=== PATIENT | female | born 1950 | race Caucasian/White ===

== ENCOUNTER 2023-05-13 11:28 | Emergency (ER) | payer MEDICARE, OTHER ==
[~2023-05-13] VITALS: Ht 154.9 cm; Wt 69.9 kg
[2023-05-13 11:56] VITALS: O2SAT 98
[2023-05-13 12:26] LABS: BASOPHILS # (AUTO) 0.1 K/UL (0.0-0.2); BASOPHILS % (AUTO) 1.3 % (0.0-2.0); EOSINOPHILS % (AUTO) 0.5 % (0.0-7.0); HEMATOCRIT 34.5 % (31.2-41.9); HEMOGLOBIN 11.6 g/dL (10.9-14.3); LYMPHOCYTES # (AUTO) 1.3 K/uL (0.8-4.8); LYMPHOCYTES % (AUTO) 18.6 % (20.5-51.5); MEAN CORPUSCULAR HEMOGLOBIN 29.9 uug (24.7-32.8); MEAN CORPUSCULAR HGB CONC 34 g/dL (32.3-35.6); MEAN CORPUSCULAR VOLUME 89.2 fL (75.5-95.3); MONOCYTES # (AUTO) 0.6 K/uL (0.1-1.30); MONOCYTES % (AUTO) 7.9 % (0.0-11.0); NEUTROPHILS # (AUTO) 5.1 K/uL (1.8-8.9); NEUTROPHILS % (AUTO) 71.7 % (38.5-71.5); PLATELET COUNT (AUTO) 372 K/uL (179-408); RED BLOOD CELL COUNT(AUTO) 3.87 MIL/uL (3.63-4.92); RED CELL DISTRIBUTION WIDTH 13.3 % (12.3-17.7); WHITE BLOOD COUNT (AUTO) 7.1 K/uL (3.8-11.8)
[2023-05-13] MEDS ORDERED: OMEP40CA21 PO (12:27)
[2023-05-13] MEDS ORDERED: AMLO-212 PO (12:27)
[2023-05-13] MEDS ORDERED: FLUO20CA42 PO (12:27)
[2023-05-13] MEDS ORDERED: METF-440 PO (12:27)
[2023-05-13] MEDS ORDERED: HYDR-3980 PO (12:27)
[2023-05-13] MEDS ORDERED: ATOR10TA PO (12:27)
[2023-05-13] MEDS ORDERED: CHOL10005 PO (12:27)
[2023-05-13] MEDS ORDERED: ASPI81TA31 PO (12:27)
[2023-05-13] MEDS ORDERED: LEVO100T10 PO (12:27)
[2023-05-13] MEDS ORDERED: EYE DROPS (12:27)
[2023-05-13] MEDS ORDERED: FAMO40TA7 PO ×2 (12:27→15:09)
[2023-05-13] MEDS ORDERED: OMEG1CAP40 PO (12:27)
[2023-05-13 12:35] LABS: CALCIUM 9.4 mg/dL (8.5-10.1); CARBON DIOXIDE 29 mmol/L (21-32); CHLORIDE 102 mmol/L (98-107); CREATININE 0.6 mg/dL (0.6-1.3); GLUCOSE 112 mg/dL (74-106); POTASSIUM 4.1 mmol/L (3.5-5.1); SODIUM SERUM 139 mmol/L (136-145); UREA NITROGEN, BLOOD 10 mg/dL (7-18)
[2023-05-13 12:47] LABS: ALANINE AMINOTRANSFERASE 11 U/L (14-59); ALBUMIN 3.4 g/dL (3.4-5.0); ALKALINE PHOSPHATASE 90 U/L (50-136); ASPARTATE AMINOTRANSFERASE 6 U/L (15-37); BILIRUBIN,DIRECT 0.1 mg/dL (0.0-0.2); BILIRUBIN,TOTAL 0.5 mg/dL (0.2-1.0); NT-PRO BNP 33 pg/mL (0-125); TOTAL PROTEIN, SERUM 7.3 g/dL (6.4-8.2)
[2023-05-13] MEDS ORDERED: SWABABLE VALVE TRANSFER SET EA MC ONE (13:25)
[2023-05-13] MEDS ORDERED: IOHEXOL 350 100 ML INFUS..BTL ONE (13:25)
[2023-05-13] MEDS ORDERED: IV NORMAL SALINE 250 ML IV ONE (13:25)
[2023-05-13 13:26] LABS: *BILIRUBIN,URIN NEGATIVE (NEGATIVE); *BLOOD, URINE NEGATIVE (NEGATIVE); *CLARITY,URINE CLEAR (CLEAR); *COLOR,URINE YELLOW (YELLOW); *KETONES,URINE NEGATIVE (NEGATIVE); *PROTEIN,URINE NEGATIVE (NEGATIVE); *UROBILINOGEN,URINE 0.2 E.U./dl (NORMAL); LEUKOCYTE ESTERASE ,URINE NEGATIVE (NEGATIVE); NITRITE, URINE NEGATIVE (NEGATIVE); UGLUCOSE NEGATIVE (NEGATIVE)
[2023-05-13] MEDS: IV NORMAL SALINE 1000 ML BAG IV ONE (14:09)
[2023-05-13] MEDS ORDERED: MORPHINE SULFATE 4 MG/1 ML DISP.SYRIN ONE (14:11)
[2023-05-13] MEDS ORDERED: ONDANSETRON 4 MG/2 ML VIAL ONE (14:11)
[2023-05-13] MEDS: ONDANSETRON 4 MG/2 ML VIAL IV ONE (14:23)
[2023-05-13] MEDS: MORPHINE SULFATE 4 MG/1 ML DISP.SYRIN IV ONE (14:23)
[2023-05-13] MEDS ORDERED: SUCR1ORA PO (15:09)
== END 2023-05-13 18:00 | disposition home or self-care (01) ==
LOC: ER 11:28
DX: Q44.5 Other congenital malformations of bile ducts (principal); R10.13 Epigastric pain; E11.9 Type 2 diabetes mellitus without complications; Z79.899 Other long term (current) drug therapy
CPT/HCPCS: 99285; 71275; 93970; 96374; 71045; 96361; 96375; 80076; 80048; 81003; 82962; 83880; 83690; 85025; 85379; 85730; 87040 ×2; 84484; 36415; 93005; 74177; 83605; 87086; J2405; Q9967; J2270; J7040; A4606; A4663